=== PATIENT | male | born 1980 | race African-American/Black ===

== ENCOUNTER → 2017-12-16 | Outpatient (CLI) | payer OTHER | LOC: M RAD 13:17 | DX: J31.0 Chronic rhinitis (principal) | CPT/HCPCS: 70486 ==

== ENCOUNTER → 2018-03-01 | Outpatient (REF) | payer OTHER | LOC: M SMT 12:35 | DX: Z30.2 Encounter for sterilization (principal) ==

== ENCOUNTER → 2018-04-28 | Outpatient (REF) | payer OTHER ==
[2018-04-28 11:11] LABS: SEMEN APPEARANCE OPAQUE (OPAQUE); SEMEN VISCOSITY VISCOUS (LIQUID)
[2018-04-28 11:12] LABS: IMMMOTILE SPERM CENTRIFUGED ABSENT (ABSENT); IMMOTILE SPERM ABSENT (ABSENT); MOTILE SPERM ABSENT (ABSENT); MOTILE SPERM CENTRIFUGED ABSENT (ABSENT); WBC CONCENTRATION >1 M/ml (<=1 M/ml)
== END ==
LOC: M SMT 10:17
DX: Z98.52 Vasectomy status (principal)
CPT/HCPCS: 89321